=== PATIENT | female | born 1970 | race Caucasian/White ===

== ENCOUNTER 2017-11-27 12:30 | Outpatient (CLI) | payer OTHER ==
--- NOTE | 2017-11-27 14:53 | Diagnostic Imaging Report ---
YONATAN LINDSAY [facility] [address] [facility].[address] [id number] Report Submission Date: Nov 27, 2017 12:52:53 PM CDT Patient Study Name: DEWAYNE LÓPEZ Date: Nov 27, 2017 12:30:23 PM CDT Modality Type: DX Gender: F Description: LOWER EXTREMITY : 74 Institution: [facility] Physician: YONATAN LINDSAY Right foot History: Foot injury Three views of the right foot were obtained which demonstrate no evidence for acute fracture or dislocation. There is soft tissue swelling along the dorsum of the foot. Impression: Soft tissue swelling along the dorsum of the foot. No osseous abnormality. Electronically signed on Nov 27, 2017 12:52:53 PM CDT by: Shania LOW
== END 2017-11-27 12:32 ==
LOC: RAD 12:30
PROVIDERS: ATTEND Family Medicine
DX: M79.671 Pain in right foot (principal); W23.1XXA Caught, crushed, jammed, or pinched between stationary objects, initial encounter; Y92.9 Unspecified place or not applicable; Y93.9 Activity, unspecified; Y99.9 Unspecified external cause status
CPT/HCPCS: 73630